=== PATIENT | female | born 1955 | race Caucasian/White ===

== ENCOUNTER 2020-11-06 08:34 | Outpatient (CLI) | payer MEDICARE | END 2020-11-06 08:35 | disposition home or self-care (01) | LOC: TBSIIMAG 08:34 | PROVIDERS: ATTEND Family Medicine | DX: S46.211A Strain of muscle, fascia and tendon of other parts of biceps, right arm, initial encounter (principal); D17.21 Benign lipomatous neoplasm of skin and subcutaneous tissue of right arm ==

== ENCOUNTER 2021-05-07 10:02 | Outpatient (CLI) | payer MEDICARE ==
[2021-05-07 10:43] LABS: Estimated GFR-MDRD - POC Greater than 90
== END 2021-05-07 10:03 | disposition home or self-care (01) ==
LOC: BICMRI 10:02
PROVIDERS: ATTEND Family Medicine
DX: R92.8 Other abnormal and inconclusive findings on diagnostic imaging of breast (principal)
CPT/HCPCS: 82565; C8908; A9577

== ENCOUNTER 2021-05-10 14:53 | Outpatient (CLI) | payer MEDICARE | END 2021-05-10 14:54 | disposition home or self-care (01) | LOC: BICULT 14:53 | PROVIDERS: ATTEND Family Medicine | DX: N63.24 Unspecified lump in the left breast, lower inner quadrant (principal) ==

== ENCOUNTER → 2021-05-17 | Day surgery (SDC) | payer MEDICARE | LOC: BICULT 12:49 | PROVIDERS: ATTEND Family Medicine | PROC: 0H9U3ZX Drainage of Left Breast, Percutaneous Approach, Diagnostic (ICD-10-PCS; principal; 2021-05-17) | DX: N64.89 Other specified disorders of breast (principal) | CPT/HCPCS: 19083; 88305; 88341; 88342 ==

== ENCOUNTER 2024-01-20 09:53 | Outpatient (CLI) | payer MEDICARE, OTHER ==
[2024-01-20 10:50] LABS: #Basophils 0.03 10x3/uL (0.0-0.2); #Eosinphils 0.05 10x3/uL (0.0-0.5); #Neutrophils 3.68 10x3/uL (1.5-8.4); %Basophils 0.5 % (0.0-2.0); %Eosinophils 0.8 % (0.0-6.0); %Lymphocytes 32.9 % (18.0-47.0); %Monocytes 9.2 % (0.0-10.0); %Neutrophils 56.4 % (40.0-75.0); Hematocrit 41.3 % (34.9-44.5); Hemoglobin 14.5 g/dL (12.0-15.5); Mean Corpuscular HGB CONC 35.1 g/dL (32.0-36.0); Mean Corpuscular Hemoglobin 30.3 pg (27.0-33.0); Mean Corpuscular Volume 86.2 fL (81.6-98.3); Mean Platelet Volume 9.1 fL (7.4-10.4); Platelet Count 234 10x3/uL (150-450); RBC Distribution Width 12.4 % (11.5-14.5); Red Blood Cell (RBC) Count 4.79 10x6/uL (3.90-5.03); White Blood Cell (WBC) Count 6.5 10x3/uL (3.5-10.5)
[2024-01-20 11:29] LABS: Anion Gap 15 mmol/L (10-20); BUN (Urea Nitrogen) 8 mg/dL (9.8-20.1); Calc. Creatinine Clearance 0 mL/min (70-130); Calcium 9.8 mg/dL (7.8-10.44); Carbon Dioxide 24 mmol/L (23-31); Chloride 105 mmol/L (98-107); Estimated GFR 90; Glucose 96 mg/dL (80-115); Potassium 3.9 mmol/L (3.5-5.1); Sodium 140 mmol/L (136-145)
== END 2024-01-20 09:54 | disposition home or self-care (01) ==
LOC: LABBT 09:53
PROVIDERS: ATTEND Orthopaedic Surgery
DX: Z01.818 Encounter for other preprocedural examination (principal); M23.303 Other meniscus derangements, unspecified medial meniscus, right knee
CPT/HCPCS: 80048; 85025; 93005; 93010

== ENCOUNTER 2024-01-22 06:50 | Day surgery (SDC) | payer MEDICARE ==
[2024-01-20 10:16] VITALS: BMI 36.8
[2024-01-22] MEDS ORDERED: CEFAZOLIN 2 GM VIAL ONE (07:30)
[2024-01-22] MEDS ORDERED: Sodium Chloride 0.9% 100 ML ONE (07:30)
[2024-01-22] MEDS ORDERED: Famotidine/PF 20 mg/2ml Vial ONE (08:14)
[2024-01-22] MEDS ORDERED: PROPOFOL 20 ML ONE ×3 (08:15→09:45)
[2024-01-22] MEDS ORDERED: fentaNYL 50 mcg/mL 1 mL Vial ONE (08:15)
[2024-01-22] MEDS ORDERED: Lidocaine 2% PF 5 ML VIAL ONE (08:15)
[2024-01-22] MEDS ORDERED: Bupivacaine PF 0.5% 30 ML VIAL ONE (08:15)
[2024-01-22] MEDS ORDERED: fentaNYL PF 100 MCG/2 ML SYRINGE ONE (08:16)
[2024-01-22] MEDS ORDERED: Bupivacaine HCl 0.5%/Epinephrine 1:200,000/PF 30 ml Vial ONE (08:30)
[2024-01-22] MEDS ORDERED: Dexamethasone 4 mg/ml Vial ONE (09:33)
[2024-01-22] MEDS ORDERED: Ondansetron PF 4 MG/2 ML Vial ONE (09:33)
== END 2024-01-22 12:40 | disposition home or self-care (01) ==
LOC: SDC 06:50
PROVIDERS: ATTEND Orthopaedic Surgery
PROC: 0SBC4ZZ Excision of Right Knee Joint, Percutaneous Endoscopic Approach (ICD-10-PCS; principal; 2024-01-22)
DX: M23.321 Other meniscus derangements, posterior horn of medial meniscus, right knee (principal); E07.9 Disorder of thyroid, unspecified; I10 Essential (primary) hypertension; Z79.899 Other long term (current) drug therapy; Z98.890 Other specified postprocedural states
CPT/HCPCS: 29881; 97116; J0665; J1100; J2001; J2405; J2704; J3010; J3490; S0028